=== PATIENT | male | born 2000 | race Caucasian/White ===

== ENCOUNTER 2020-10-16 23:16 | Emergency (ER) | payer OTHER, SELFPAY ==
[2020-10-16 23:34] VITALS: BP 117/66; PULSE 79; RESP 18; TEMP 37.2; O2SAT 97; BMI 20.2
[2020-10-17 01:21] VITALS: BP 123/53; PULSE 66; RESP 16; TEMP 36.9; O2SAT 98
--- NOTE | 2020-10-17 01:37 | ED.ASTHMA ---
HPI - Asthma General Chief Complaint: Asthma Stated Complaint: asthma Time Seen by Provider: 10/17/20 01:26 Source: patient Mode of arrival: ambulatory Limitations: no limitations History of Present Illness HPI Narrative: 19-year-old male who presents emergency department for evaluation of asthma exacerbation. The patient states that over the past 2 weeks he has had to use his albuterol inhaler frequently. He states that despite using his inhaler he still feels short of breath. He states he has had a cough which is nonproductive. He states that he has significant wheezing and feels short of breath. He denied chest pain, fever, chills, nausea, vomiting. The patient states that he ran out of his albuterol inhaler. He has not used a rescue inhaler for several years. 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 The patient has never been intubated. Related Data Previous Rx's Medication Instructions Recorded albuterol sulfate [ProAir HFA] 2 puff INHALATION Q4-6H PRN #8.5 g 10/17/20 fluticasone propion-salmeterol 1 inh INHALATION Q12H #60 ea 10/17/20 [Advair Diskus] metronidazole [Flagyl] 500 mg PO BID 10 Days #20 tab 10/17/20 Allergies Allergy/AdvReac Type Severity Reaction Status Date / Time No Known Allergies Allergy Verified 10/17/20 01:24 Review of Systems Review of Systems: Yes all other systems are reviewed and are negative [facility] Past Medical History [facility] Narrative: Past medical history: Asthma. Past surgical history: None. Social history: The patient denies tobacco, alcohol and drug use. Medical History (Updated 10/17/20 @ 01:46 by Mu Stover MD) Asthma Social History Social History Alcohol intake: never Patient Tobacco Use Status: Never used Tobacco Smoked in Last 30 Days: No Use of substances other than those prescribed or required for medical reasons: No Advance Directives: No Advance Directives Information Provided: No Physical Exam Vital Signs: Vital Signs: Last Vital Signs Temp 98.4 F 10/17/20 01:21 Pulse 66 10/17/20 01:21 Resp 16 10/17/20 01:21 BP 123/53 L 10/17/20 01:21 Pulse Ox 98 10/17/20 01:21 Body Mass Index 20.2 Const: General: cooperative and healthy appearing Orientation/consciousness: oriented to person and oriented to place Limitations: no limitations HENMT: Head: Yes normal to inspection, Yes normocephalic and Yes atraumatic Ears: external ears normal General nose exam: Normal external nose present Face and sinus: Yes normal facial exam Mouth: Normal oral and palatal mucosa present Throat: Yes posterior oropharynx normal Eyes: Periorbital: periorbital findings normal Eyelids: Yes eyelids normal Conjunctivae: conjunctivae normal Sclerae: sclerae normal Corneas: corneas normal Pupils: Equal, round and reactive pupils present Direct Ophthalmoscopy: normal light reflex Neck: Neck: Yes full ROM, Yes no lymphadenopathy, Yes no meningeal signs, Yes trachea midline and Yes supple Chest: Chest palpation & inspection: normal inspection of the chest and normal palpation of entire chest wall Resp: Effort & Inspection: normal respiratory effort and able to speak in complete sentences Auscultation: no crackles, no rales, no rhonchi and wheezes scattered wheezes Cardio: Rate: regular rate Rhythm: regular rhythm Heart sounds: S1 normal heart sound present, S2 normal heart sound present and no murmurs GI: Inspection: Yes normal to inspection Palpation (GI): Soft to palpation, nontender, no guarding, not rigid and No hepatosplenomegaly present : General: Yes no CVA tenderness Back/Spine/Pelvis: Back: no CVA tenderness Cervical Spine: normal cervical lordosis Thoracic/Lumbar Spine: thoracic and lumbar spine normal to inspection Skin: Lesions: no lesions Rashes: no rashes Wounds: no wounds Neuro: General: oriented to person, oriented to place and no meningeal signs Cranial nerves: Yes Equal, round and reactive pupils present Cognition (Neuro): normal cognition Motor exam (neuro): 5/5 motor strength present throughout Extrem: General: Yes normal to inspection and Yes full ROM Psych: Appearance: well kempt Mental Status: mental status grossly normal Speech and movement: Normal speech and movement present Affect: normal affect Attitude: cooperative Thought process: Normal thought process present Thought content: Normal thought content present Course Course Course Narrative: 19-year-old male with history of asthma who presents emergency department for evaluation of an asthma exacerbation x2 weeks. Patient has had a nonproductive cough and feel short of breath. Patient has been using his inhaler frequent and ran out of his albuterol. Vital signs are normal. Lung exam revealed diffuse scattered wheezing. Patient's presentation is consistent with an asthma exacerbation. He was ordered to get an albuterol inhaler 6 puffs. He is also ordered to get prednisone 60 mg orally. The patient was discharged with a prescription for albuterol inhaler 2 puffs every 4 hours, Advair inhaler 1 puffs twice a day and prednisone 60 mg once a day for 5 days. He was given printed and verbal instructions and discharged home. Discharge Plan Discharge Clinical Impression: Asthma with acute exacerbation Patient Disposition: Home, Self-Care Instructions: Asthma (ED) Additional Instructions: Take prednisone 20 mg pills, 3 pills once a day for 5 days. Use the Advair Diskus inhaler, 1 inhalation twice a day. This is a steroid inhaler with a long and albuterol-like medicine. This is a preventative inhaler and will not help you if you are short of breath but should help improve your asthma over time. Start this medication after you finish the prednisone. Use albuterol inhaler 2 puffs every 4-6 hours as needed for shortness of breath. This is your rescue inhaler. Use this medication any time you feel short of breath. Follow-up with your doctor in 2 days. Please return to the emergency department if your symptoms get worse or if you develop any symptoms that are concerning to you. Prescriptions: New metronidazole [Flagyl] 500 mg tablet 500 mg PO BID 10 Days Qty: 20 RF: 0 albuterol sulfate [ProAir HFA] 90 mcg/actuation HFA aerosol inhaler 2 puff inhalation Q4-6H PRN (Reason: shortness of breath or wheezing) Qty: 8.5 RF: 0 fluticasone propion-salmeterol [Advair Diskus] 250-50 mcg/dose blister with device 1 inh inhalation Q12H Qty: 60 RF: 0
[2020-10-17] MEDS: predniSONE 20 MG TABLET 60 MG PO (01:44)
[2020-10-17] MEDS: Albuterol Sulfate 90 MCG 8 GM INHALER 6 PUFF INHALE (01:45)
== END 2020-10-17 02:27 | disposition home or self-care (01) ==
PROVIDERS: Emergency Provider Emergency Medicine Emergency Medical Services
DX: J45.901 Unspecified asthma with (acute) exacerbation (principal); Z79.899 Other long term (current) drug therapy
CPT/HCPCS: 99284